=== PATIENT | female | born 1980 | race African-American/Black ===

== ENCOUNTER 2016-05-27 16:53 | Emergency (ER) | payer MEDICAID ==
--- NOTE | 2016-05-27 17:26 | ER Document Report ---
ED Medical Screen (RME) - General Stated Complaint: HEAD PAIN/NAUSEA Time seen by provider: 17:23 Mode of Arrival: Ambulatory Information source: Patient Notes: 35-year-old female presents to ED for headache since Thursday. She went to [facility] had a fever of 100.1 states she's been having headaches on and off since then. She was told it [facility] that she had muscle spasms in the back of her neck.. Patient states she's also have the nausea vomiting chills and blurred vision denies any vomiting. I have greeted and performed a rapid initial assessment of this patient. A comprehensive ED assessment and evaluation of the patient, analysis of test results and completion of medical decision making process will be conducted by an additional ED providers. TRAVEL OUTSIDE OF THE [place] IN LAST 30 DAYS: No - Related Data Allergies/Adverse Reactions: amoxicillin Allergy (Verified 05/27/16 17:23) lactose Allergy (Verified 05/27/16 17:23) NSAIDS (Non-Steroidal Anti-Inflamma Adverse Reaction (Verified 05/27/16 17:23) Past Medical History - Past Medical History Cardiac Medical History: Denies: Hx Coronary Artery Disease, Hx Heart Attack, Hx Hypertension Pulmonary Medical History: Denies: Hx Asthma, Hx Bronchitis, Hx COPD, Hx Pneumonia Neurological Medical History: Denies: Hx Cerebrovascular Accident, Hx Seizures GI Medical History: Reports: Hx Gastroesophageal Reflux Disease, Hx Ulcer Musculoskeltal Medical History: Reports Hx Arthritis Past Surgical History: Reports: Hx Section, Hx Gynecologic Surgery - D& C. Denies: Hx Pacemaker - Immunizations Hx Diphtheria, Pertussis, Tetanus Vaccination: Yes Physical Exam - Vital signs Vitals: Temp Pulse Resp BP Pulse Ox 98.1 F 81 18 123/66 99 05/27/16 17:05 05/27/16 17:05 05/27/16 17:05 05/27/16 17:05 05/27/16 17:05 Course - Vital Signs Vital signs: Temp Pulse Resp BP Pulse Ox 98.1 F 81 18 123/66 99 05/27/16 17:05 05/27/16 17:05 05/27/16 17:05 05/27/16 17:05 05/27/16 17:05
[2016-05-27] MEDS ORDERED: ACETAMINOPHEN 325 MG TABLET PO ONE (17:28)
[2016-05-27] MEDS ORDERED: PROMETHAZINE HCL 25 MG TABLET PO ONE (17:28)
[2016-05-27] MEDS ORDERED: CEFTRIAXONE 2 GM/D5W RTU 50 ML IV ONE (18:45)
[2016-05-27] MEDS ORDERED: DIPHENHYDRAMINE HCL 50 MG/ML VIAL IV ONE (18:45)
[2016-05-27] MEDS ORDERED: NORMAL SALINE 1000 ML 1,000 ML IV PRN (18:45)
[2016-05-27] MEDS ORDERED: METOCLOPRAMIDE HCL INJ/PF 10 MG/2 ML SDV IV ONE (18:45)
[2016-05-27] MEDS ORDERED: MORPHINE SULFATE 10 MG/ML INJ IV ONE ×2 (19:07→21:56)
[2016-05-27 20:03] LABS: ABSOLUTE EOSINOPHILS # (AUTO) 0.1 10^3/uL (0.0-0.6); ABSOLUTE LYMPHOCYTES (AUTO) 1.9 10^3/uL (0.5-4.7); ABSOLUTE MONOCYTES (AUTO) 0.5 10^3/uL (0.1-1.4); ABSOLUTE NEUT (AUTO) 10.1 10^3/uL (1.7-8.2); BASOPHILS % (AUTO) 0.4 % (0-2); EOSINOPHILS % (AUTO) 0.6 % (0-6); HEMATOCRIT 37.2 % (36.0-47.0); HGB HCT DIFFERENCE -1.2; MEAN CORPUSCULAR HEMOGLOBIN 25.1 pg (27.0-33.4); MEAN CORPUSCULAR HGB CONC 32.2 g/dL (32.0-36.0); MEAN CORPUSCULAR VOLUME 78 fl (80-97); MONOCYTES % (AUTO) 3.8 % (3-13); RED BLOOD COUNT 4.78 10^6/uL (3.72-5.28); RED CELL DISTRIBUTION WIDTH 16.8 % (11.5-14.0); SEGMENTED NEUTROPHILS % (AUTO) 80.2 % (42-78); WHITE BLOOD COUNT 12.6 10^3/uL (4.0-10.5)
[2016-05-27 20:06] LABS: GLUCOSE,CSF 60 mg/dL (40-70)
[2016-05-27 20:30] LABS: APPEARANCE TUBE 1 SLIGHTLY HAZY
[2016-05-27 20:31] LABS: APPEARANCE TUBE 2 CLEAR; APPEARANCE TUBE 3 CLEAR
[2016-05-27 20:32] LABS: RBC AVERAGE 248.5; RBC DILUENT USED NONE USED; RBC DILUTION FACTOR 1; RBC SIDE 1 247; RBC SIDE 2 250; TOTAL RBC SQUARES COUNTED 25
[2016-05-27 20:32] LABS: ALANINE AMINOTRANSFERASE 21 U/L (9-52); ALBUMIN 3.9 g/dL (3.5-5.0); ALKALINE PHOSPHATASE 94 U/L (38-126); ANION GAP 9 (5-19); ASPARTATE AMINO TRANSFERASE 32 U/L (14-36); BILIRUBIN,TOTAL 0.5 mg/dL (0.2-1.3); BLOOD UREA NITROGEN 12 mg/dL (7-20); CARBON DIOXIDE 25 mmol/L (22-30); CHLORIDE 105 mmol/L (98-107); CREATININE RESULT 0.72 mg/dL (0.52-1.25); GLUCOSE 99 mg/dL (75-110); SODIUM 138.8 mmol/L (137-145); TOTAL PROTEIN 8.2 g/dL (6.3-8.2)
[2016-05-27 20:33] LABS: WHITE BLOOD CELL,CSF 4 /uL (0-5)
[2016-05-27 20:34] LABS: APPEARANCE TUBE 1 SLIGHTLY HAZY; APPEARANCE TUBE 2 CLEAR; APPEARANCE TUBE 3 CLEAR
[2016-05-27 20:35] LABS: RBC DILUENT USED NONE USED; RBC DILUTION FACTOR 1; RBC SIDE 1 107; RBC SIDE 2 117; TOTAL RBC SQUARES COUNTED 225
[2016-05-27 20:36] LABS: WHITE BLOOD CELL,CSF 1 /uL (0-5)
--- NOTE | 2016-05-27 23:13 | ER Document Report ---
ED General - General Chief Complaint: Headache >24 hrs old Stated Complaint: HEAD PAIN/NAUSEA Time seen by provider: 17:00 Mode of Arrival: Ambulatory Information source: Patient Notes: Note this is a 35-year-old female that presents to the emergency room with a severe headache. Patient states she's had fever for the past 3 days. She does report photophobia and neck stiffness. Her temperature was 101. Patient was seen in the emergency room at [facility] 3 nights ago and had a CT of her head which showed no bleeding at that time. Patient did say she had fever at that time and that they did talk to her about meningitis but a spinal tap was not done. Patient states her headache is gotten worse since that time. TRAVEL OUTSIDE OF THE [place] IN LAST 30 DAYS: No - HPI Onset: Last week Onset/Duration: Gradual Quality of pain: Sharp Severity: Moderate Pain Level: 4 Associated symptoms: Chills, Fever, Other - Headache and neck stiffness. denies : Shortness of breath Exacerbated by: Denies Relieved by: Denies Similar symptoms previously: Yes Recently seen / treated by doctor: Yes - Related Data Allergies/Adverse Reactions: amoxicillin Allergy (Verified 05/27/16 17:23) lactose Allergy (Verified 05/27/16 17:23) NSAIDS (Non-Steroidal Anti-Inflamma Adverse Reaction (Verified 05/27/16 17:23) Past Medical History - General Information source: Patient - Social History Smoking Status: Never Smoker Cigarette use (# per day): No Chew tobacco use (# tins/day): No Frequency of alcohol use: None Drug Abuse: None Lives with: Family Family History: Reviewed & Not Pertinent Patient has suicidal ideation: No Patient has homicidal ideation: No - Past Medical History Cardiac Medical History: Denies: Hx Coronary Artery Disease, Hx Heart Attack, Hx Hypertension Pulmonary Medical History: Denies: Hx Asthma, Hx Bronchitis, Hx COPD, Hx Pneumonia Neurological Medical History: Denies: Hx Cerebrovascular Accident, Hx Seizures Renal/ Medical History: Denies: Hx Peritoneal Dialysis GI Medical History: Reports: Hx Gastroesophageal Reflux Disease, Hx Ulcer Musculoskeltal Medical History: Reports Hx Arthritis Past Surgical History: Reports: Hx Section, Hx Gynecologic Surgery - D& C. Denies: Hx Pacemaker - Immunizations Hx Diphtheria, Pertussis, Tetanus Vaccination: Yes Review of Systems - Review of Systems Constitutional: Chills, Fever EENT: No symptoms reported Cardiovascular: No symptoms reported Respiratory: Cough Gastrointestinal: No symptoms reported Genitourinary: No symptoms reported Female Genitourinary: No symptoms reported Musculoskeletal: No symptoms reported Skin: No symptoms reported Hematologic/Lymphatic: No symptoms reported Neurological/Psychological: See HPI, Headaches Physical Exam - Vital signs Vitals: Temp Pulse Resp BP Pulse Ox 98.1 F 81 18 123/66 99 05/27/16 17:05 05/27/16 17:05 05/27/16 17:05 05/27/16 17:05 05/27/16 17:05 Notes: Physical exam: GENERAL: 35-year-old female, alert and oriented 3, complaining of severe headache. Photophobic. Complaining of neck stiffness. HEAD: Atraumatic, normocephalic. EYES: Pupils equal round and reactive to light, extraocular movements intact, sclera anicteric, conjunctiva are normal. ENT: TMs normal, nares patent, oropharynx clear without exudates. Moist mucous membranes. NECK: Normal range of motion, pain with range of motion. LUNGS: Breath sounds clear to auscultation bilaterally and equal. No wheezes rales or rhonchi. HEART: Regular rate and rhythm without murmurs, rubs or gallops. ABDOMEN: Soft, normoactive bowel sounds. No tenderness to palpation. No guarding, no rebound. No masses appreciated. EXTREMITIES: Normal range of motion, no pitting or edema. No clubbing or cyanosis. NEUROLOGICAL: Cranial nerves II through XII grossly intact. Normal speech, motor 5 over 5, photophobia, neck stiffness. PSYCH: Normal mood, normal affect. SKIN: Warm, Dry, normal turgor, no rashes or lesions noted. Course - Re-evaluation Re-evalutation: 05/27/16 23:41 Patient was treated with IV fluids, IV pain medicine and IV Reglan and Benadryl. She was given 2 g of IV ceftriaxone pending the spinal tap Spinal tap was performed: He was initially traumatic, but after achieving the correct space, fluid was obviously clear. By the time the last 2 was obtained, the fluid in the fourth tube was clear. CSF shows 1 white cell. On reassessment of the patient, she feels much better after the above treatment. She is tolerating the light and looks good. I think most likely she has some sort of viral pathology. She does have a lot of cough and a component of bronchitis. I will put her on an antibiotic in the remote chance that there is bacteria. CSF cultures are pending and I told the patient we call her for those are positive. However, my suspicion for meningitis now based upon the CSF is very low. Given that she looks quite good , we will discharge. 05/27/16 23:43 I discussed with her that she should probably not sleep in the same room as her 18 month old son until the fever subsides. - Vital Signs Vital signs: Temp Pulse Resp BP Pulse Ox 98.4 F 67 20 94/59 L 98 05/27/16 23:26 05/27/16 23:26 05/27/16 23:26 05/27/16 23:26 05/27/16 23:26 - Laboratory Result Diagrams: 05/27/16 19:40 05/27/16 19:40 Laboratory results interpreted by me: 05/27/16 05/27/16 19:25 19:40 WBC 12.6 H MCV 78 L MCH 25.1 L RDW 16.8 H Seg Neutrophils % 80.2 H Absolute Neutrophils 10.1 H CSF RBC 2485 H - Diagnostic Test Radiology reviewed: Image reviewed, Reports reviewed - Chest x-ray shows no infiltrates Procedures - Lumbar Puncture Lumbar puncture Time completed: 20:00 Consent obtained: Yes Lumbar puncture pre-procedure: Chloraprep applied Patient position: Sitting Needle size: 20 Anesthetic type: 1% Lidocaine mL's of anesthetic: 5 Number of attempts: 1 Complications: No Notes: 05/27/16 23:40 Note: The spinal tap was initially traumatic. Advancing the needle further, subarachnoid space was achieved with clear fluid. Tubes 1 showed traumatic tap , last tube is clear. Patient Discharge - Discharge Clinical Impression: acute viral syndrome, acute febrile illness Condition: Stable Disposition: HOME, SELF-CARE Instructions: Post Lumbar Puncture ([facility]), Oral Narcotic Medication ([facility]) Additional Instructions: Recommendations: Rest, drink plenty of fluids, take Reglan for nausea. Take Percocet for pain. Take the antibiotics prescribed. As we discussed: The spinal fluid looks noninfectious at this point which is good. Cultures were sent. Return to the emergency room for worsening pain, vomiting, not tolerating fluids or any concerns that you're getting worse. Follow-up with your primary care doctor. Prescriptions: Cefuroxime Axetil [Ceftin 500 mg Tablet] 1 tab PO BID #14 tablet Metoclopramide HCl [Reglan 10 mg Tablet] 1 - 2 tab PO ASDIR PRN #14 tablet PRN Reason: Oxycodone HCl/Acetaminophen [Percocet 5-325 mg Tablet] 1 - 2 tab PO ASDIR PRN # 15 tablet PRN Reason:
[2016-05-27 23:48] VITALS: BP 114/77
== END 2016-05-27 23:48 | disposition home or self-care (01) ==
LOC: ER 16:53
PROC: 009U3ZX Drainage of Spinal Canal, Percutaneous Approach, Diagnostic (ICD-10-PCS; principal; 2016-05-27)
DX: R50.9 Fever, unspecified (principal); B34.9 Viral infection, unspecified; R51 Headache; M43.6 Torticollis; H53.149 Visual discomfort, unspecified; R05 Cough; Z91.048 Other nonmedicinal substance allergy status; Z88.0 Allergy status to penicillin
CPT/HCPCS: 96376; 99284; 96361; 96374; 96375; 36415; 87040; 87070 ×2; 87205; 87880; 85025; 89050; 82945; 84157; 80053; 87804; 71020; 62270; J3490 ×2; J1200; J2765; J2270; J7030; J0696

== ENCOUNTER 2016-10-10 12:20 | Emergency (ER) | payer MEDICAID ==
[2016-10-10] MEDS ORDERED: GUAIFENESIN 600 MG TABLET.SA PO ONE (12:47)
[2016-10-10] MEDS ORDERED: PSEUDOEPHEDRINE HCL 30 MG TABLET PO ONE (12:47)
--- NOTE | 2016-10-10 12:49 | ER Document Report ---
ED Respiratory Problem - General Chief Complaint: Cold Symptoms Stated Complaint: FLU LIKE SYMPTOMS Time Seen by Provider: 10/10/16 12:32 Mode of Arrival: Ambulatory Information source: Patient Notes: 36-year-old female presents to ED for cough and cold symptoms. She states she has been cough and congestion runny nose body aches sore throat hot and cold flashes for 2 days. She states she got coughing so much today that she started vomiting. Took some flu medicine last night which made her coughing considerably worse and a lot of stuff started breaking up. She states she has not had any medicines this morning and she is afebrile at this time. States she had an IUD put in about a month ago. TRAVEL OUTSIDE OF THE [place] IN LAST 30 DAYS: No - HPI Patient complains to provider of: Cough Onset: Other - 2 Days Duration: Better Initiating Event: URI Quality of pain: Achy Severity: Moderate Pain Level: 3 Context: Smoker Cough: Productive Sputum amount: Small Sputum color: Green Sputum consistency: Thick Associated symptoms: Congestion, Cough, PND, Runny nose, Sinus pain/pressure, Sore Throat Similar symptoms previously: Yes Recently seen / treated by doctor: No - Related Data Allergies/Adverse Reactions: amoxicillin Allergy (Verified 05/27/16 17:23) lactose Allergy (Verified 05/27/16 17:23) NSAIDS (Non-Steroidal Anti-Inflamma Adverse Reaction (Verified 05/27/16 17:23) Past Medical History - General Information source: Patient - Social History Smoking Status: Current Every Day Smoker Cigarette use (# per day): Yes - 1 cig Chew tobacco use (# tins/day): No Smoking Education Provided: Yes - less than 1 min Frequency of alcohol use: None Drug Abuse: None Occupation: no Lives with: Family Family History: Arthritis, CAD, Hyperlipidemia, Hypertension, Malignancy, Thyroid Disfunction - Past Medical History Cardiac Medical History: Reports: None Pulmonary Medical History: Reports: None EENT Medical History: Reports: Other - mono Neurological Medical History: Reports: None Endocrine Medical History: Reports: None Renal/ Medical History: Reports: Other - fibroid cyst uterus Malignancy Medical History: Reports: None GI Medical History: Reports: Hx Gastroesophageal Reflux Disease, Hx Ulcer, Hx Colonoscopy, Hx Endoscopy Musculoskeltal Medical History: Reports Hx Arthritis Skin Medical History: Reports None Psychiatric Medical History: Reports: None Traumatic Medical History: Reports: None Infectious Medical History: Reports: None Past Surgical History: Reports: Hx Section, Hx Gynecologic Surgery - D& C, fibroid cyst removed - Immunizations Immunizations up to date: Yes Hx Diphtheria, Pertussis, Tetanus Vaccination: Yes Review of Systems - Review of Systems Constitutional: Recent illness EENT: Nose congestion, Sinus pressure, Sinus discharge, Throat pain Cardiovascular: No symptoms reported Respiratory: Cough, Sputum Gastrointestinal: Vomiting - after coughing and gagging Genitourinary: No symptoms reported Female Genitourinary: No symptoms reported Musculoskeletal: No symptoms reported Skin: No symptoms reported Hematologic/Lymphatic: No symptoms reported Neurological/Psychological: No symptoms reported Physical Exam - Vital signs Vitals: Temp Pulse Resp BP Pulse Ox 98.6 F 100 18 122/62 98 10/10/16 12:34 10/10/16 12:34 10/10/16 12:34 10/10/16 12:34 10/10/16 12:34 Interpretation: Normal - General General appearance: Appears well, Alert - HEENT Head: Normocephalic, Atraumatic Eyes: Normal Pupils: PERRL Ears: Normal External canal: Normal Tympanic membrane: Normal Sinus: Normal Nasal: Purulent discharge, Swelling Mouth/Lips: Normal Mucous membranes: Normal Pharynx: Post nasal drainage. No: Erythema, Exudate, Tonsillar hypertrophy Neck: Normal - Respiratory Respiratory status: No respiratory distress Chest status: Pain with cough Breath sounds: Normal Chest palpation: Normal - Cardiovascular Rhythm: Regular Heart sounds: Normal auscultation Murmur: No - Abdominal Inspection: Normal Distension: No distension Bowel sounds: Normal Tenderness: Nontender Organomegaly: No organomegaly - Back Back: Normal, Nontender - Extremities General upper extremity: Normal inspection, Nontender, Normal color, Normal ROM , Normal temperature General lower extremity: Normal inspection, Nontender, Normal color, Normal ROM , Normal temperature, Normal weight bearing. No: Derek's sign - Neurological Neuro grossly intact: Yes Cognition: Normal Orientation: AAOx4 Scottie Coma Scale Eye Opening: Spontaneous [place]ie Coma Scale Verbal: Oriented [place] Coma Scale Motor: Obeys Commands Scottie Coma Scale Total: 15 Speech: Normal Motor strength normal: LUE, RUE, LLE, RLE Sensory: Normal - Psychological Associated symptoms: Normal affect, Normal mood - Skin Skin Temperature: Warm Skin Moisture: Dry Skin Color: Normal Course - Re-evaluation Re-evalutation: 10/10/16 14:03 36-year-old female presents to ED for cough and cold with a negative chest x- ray. - Vital Signs Vital signs: Temp Pulse Resp BP Pulse Ox 98.6 F 100 18 122/62 98 10/10/16 12:34 10/10/16 12:34 10/10/16 12:34 10/10/16 12:34 10/10/16 12:34 - Diagnostic Test Radiology reviewed: Image reviewed, Reports reviewed Discharge - Discharge Clinical Impression: URI (upper respiratory infection) Qualifiers: URI type: unspecified URI Qualified Code(s): J06.9 - Acute upper respiratory infection, unspecified Condition: Stable Disposition: HOME, SELF-CARE Instructions: Family Physicians / Practices Additional Instructions: UPPER RESPIRATORY ILLNESS: You have a viral infection of the respiratory passages -- a "cold." This common infection causes nasal congestion, drainage, and often sore throat and cough. It is highly contagious. The disease usually lasts about 10 to 14 days. There is no "cure" for the viral infection -- it must run its course. If there is a complication, such as bacterial infection in the nose, sinuses, middle ear, or bronchial tubes, antibiotics may be required. The antibiotics won't affect the virus. Drink plenty of fluids. A humidifier may help. An expectorant medication or decongestant may make you more comfortable. Use acetaminophen or ibuprofen for fever or aches. See the doctor if fever persists over two days, if there is any significant worsening of your symptoms, or if you simply fail to improve as expected. DECONGESTANT MEDICATION: A decongestant medicine has been suggested. Often this medicine is combined in the same tablet with an antihistamine or expectorant. This type of medicine is helpful in treating a bad cold or sinus condition, as well as in treatment of the nasal congestion of hay fever. It is not of much benefit for lung infections. Decongestant medicines are related to stimulants. They can cause an increase in blood pressure and heart rate. Persons with heart disease and high blood pressure should not take decongestants without discussing this with the physician. If you develop palpitations, chest pain, headache, or tremors, stop the medicine and consult your physician. COUGH-SUPPRESSANT & EXPECTORANT MEDICATION: You are to use a cough medication as needed for relief of symptoms. This medicine is a combination of an expectorant (to make the mucous thinner and more easily "coughed up") and a cough suppressant (to reduce the frequency of coughing). The cough-suppressant medicine is related to narcotics. You may experience mild nausea and sleepiness. Some patients who are very sensitive to narcotics may have stomach pain from this medicine. Taking the medicine with food reduces these side effects. Do not drive or work with machinery until you know how this medicine affects you. The expectorant should have no side effects. Iodine-containing expectorants (such as organidin) should not be taken by persons with active thyroid disease unless approved by your doctor. Call the doctor if you develop shortness of breath, hives, rash, itching, lightheadedness, or severe nausea and vomiting. USE OF ACETAMINOPHEN (Tylenol): Acetaminophen may be taken for pain relief or fever control. It's much safer than aspirin, offering a wider range of "safe" dosages. It is safe during . Some brand names are Tylenol, Panadol, Datril, Anacin 3, Tempra, and Liquiprin. Acetaminophen can be repeated every four hours. The following are maximum recommended dosages: >89 pounds or adults 650 mg to 900 mg Acetaminophen can be repeated every four hours. Maximum dose not to exceed 4000 mg a day. SMOKING: If you smoke, you should stop smoking. The tar and chemicals in cigarette smoke are harmful. Smoking has been shown to cause: emphysema chronic bronchitis lung cancer mouth and throat cancer stomach and pancreas cancer premature aging defects In addition, smoking increases ear and lung infections in children of smokers. FOLLOW-UP CARE: If you have been referred to a physician for follow-up care, call the physician s office for an appointment as you were instructed or within the next two days. If you experience worsening or a significant change in your symptoms, notify the physician immediately or return to the Emergency Department at any time for re-evaluation. Forms: Smoking Cessation Education
--- NOTE | 2016-10-10 13:14 | RADIOLOGY REPORT (SQ) ---
EXAM DESCRIPTION: CHEST PA/LAT COMPLETED DATE/TIME: 10/10/2016 12:55 pm REASON FOR STUDY: cough congestion COMPARISON: 05/27/2016 EXAM PARAMETERS: NUMBER OF VIEWS: two views TECHNIQUE: Digital Frontal and Lateral radiographic views of the chest acquired. RADIATION DOSE: NA LIMITATIONS: none FINDINGS: LUNGS AND PLEURA: No opacities, masses or pneumothorax. No pleural effusion. MEDIASTINUM AND HILAR STRUCTURES: No masses or contour abnormalities. HEART AND VASCULAR STRUCTURES: Heart normal size. No evidence for failure. BONES: No acute findings. HARDWARE: None in the chest. OTHER: No other significant finding. IMPRESSION: NO SIGNIFICANT RADIOGRAPHIC FINDING IN THE CHEST. TECHNICAL DOCUMENTATION: JOB ID: [id number] [employer]- All Rights Reserved
[2016-10-10 14:50] VITALS: BP 113/73
== END 2016-10-10 14:12 | disposition home or self-care (01) ==
LOC: ER 12:20
DX: J06.9 Acute upper respiratory infection, unspecified (principal); R05 Cough; J02.9 Acute pharyngitis, unspecified; R09.82 Postnasal drip; R09.81 Nasal congestion; J34.89 Other specified disorders of nose and nasal sinuses; R07.89 Other chest pain; F17.210 Nicotine dependence, cigarettes, uncomplicated; Z71.6 Tobacco abuse counseling; Z97.5 Presence of (intrauterine) contraceptive device; Z88.0 Allergy status to penicillin
CPT/HCPCS: 99283; 71020; J3490

== ENCOUNTER 2017-01-12 18:55 | Emergency (ER) | payer MEDICAID ==
[2017-01-12] MEDS ORDERED: ONDANSETRON 4 MG TAB.RAPDIS PO ONE (20:18)
[2017-01-12 20:37] LABS: ABSOLUTE BASOPHILS # (AUTO) 0.1 10^3/uL (0.0-0.2); ABSOLUTE EOSINOPHILS # (AUTO) 0.1 10^3/uL (0.0-0.6); ABSOLUTE LYMPHOCYTES (AUTO) 2.3 10^3/uL (0.5-4.7); ABSOLUTE MONOCYTES (AUTO) 0.5 10^3/uL (0.1-1.4); ABSOLUTE NEUT (AUTO) 7.6 10^3/uL (1.7-8.2); BASOPHILS % (AUTO) 0.9 % (0-2); EOSINOPHILS % (AUTO) 0.6 % (0-6); HEMATOCRIT 36.6 % (36.0-47.0); HEMOGLOBIN 12.5 g/dL (12.0-15.5); HGB HCT DIFFERENCE 0.9; LYMPHOCYTES % (AUTO) 21.5 % (13-45); MEAN CORPUSCULAR HEMOGLOBIN 27.2 pg (27.0-33.4); MEAN CORPUSCULAR HGB CONC 34.1 g/dL (32.0-36.0); MEAN CORPUSCULAR VOLUME 80 fl (80-97); MONOCYTES % (AUTO) 4.9 % (3-13); RED BLOOD COUNT 4.59 10^6/uL (3.72-5.28); RED CELL DISTRIBUTION WIDTH 17.8 % (11.5-14.0); SEGMENTED NEUTROPHILS % (AUTO) 72.1 % (42-78); WHITE BLOOD COUNT 10.5 10^3/uL (4.0-10.5)
[2017-01-12 21:00] LABS: ALANINE AMINOTRANSFERASE 19 U/L (9-52); ALBUMIN 4.3 g/dL (3.5-5.0); ALKALINE PHOSPHATASE 77 U/L (38-126); ANION GAP 12 (5-19); ASPARTATE AMINO TRANSFERASE 17 U/L (14-36); BILIRUBIN,DIRECT 0.3 mg/dL (0.0-0.4); BILIRUBIN,TOTAL 0.4 mg/dL (0.2-1.3); BLOOD UREA NITROGEN 11 mg/dL (7-20); CALCIUM 9.6 mg/dL (8.4-10.2); CARBON DIOXIDE 27 mmol/L (22-30); CHLORIDE 102 mmol/L (98-107); CREATININE RESULT 0.71 mg/dL (0.52-1.25); GLUCOSE 103 mg/dL (75-110); LIPASE 95.9 U/L (23-300); POTASSIUM 3.8 mmol/L (3.6-5.0); SODIUM 140.8 mmol/L (137-145); TOTAL PROTEIN 7.4 g/dL (6.3-8.2)
[2017-01-12] MEDS ORDERED: DIPHENHYDRAMINE HCL 50 MG/ML VIAL IV ONE (22:24)
[2017-01-12] MEDS ORDERED: NORMAL SALINE 1000 ML 1,000 ML IV ONE ×2 (22:24→23:37)
[2017-01-12] MEDS ORDERED: KETOROLAC TROMETHAMINE INJ/PF 30 MG/1 ML SDV IV ONE (22:24)
--- NOTE | 2017-01-12 22:33 | ER Document Report ---
ED GI/ - General Chief Complaint: Abdominal Cramping Stated Complaint: ABDOMINAL PAIN, BACK PAIN Time Seen by Provider: 01/12/17 19:46 Mode of Arrival: Ambulatory Information source: Patient, Parent, [facility] Records Notes: This 36-year-old female patient comes emergency room complaining of lower abdominal cramps and low back pain. She states it began on 01/08/2017. She was seen at [facility] ER where she had an ultrasound done on 01/09/2017. She states that showed a 2 cm cyst on 1 of her ovaries, she does not know which one. She was prescribed Ultram on that visit. She saw her primary care provider today who told her there was some blood in her urine and they did a pelvic exam. She reports severe pain on the exam but complained that they did not even tell her what the cultures showed. Advised her that cultures take 24-48 hours. She further reports that she has had bad menstrual cramps ever since she was a teenager but that she does not have any vaginal bleeding at this time. Her last menstrual period was in November. She denies vaginal discharge, states she has not been sexually active recently. At this time she states "there is extreme pain in my lower abdomen and low back ". She is requesting Percocet. TRAVEL OUTSIDE OF THE [place] IN LAST 30 DAYS: No - Related Data Allergies/Adverse Reactions: amoxicillin Allergy (Verified 01/12/17 19:01) lactose Allergy (Verified 01/12/17 19:01) NSAIDS (Non-Steroidal Anti-Inflamma Adverse Reaction (Verified 01/12/17 19:01) Past Medical History - General Information source: Patient, Parent, [facility] Records - Social History Smoking Status: Current Some Day Smoker Cigarette use (# per day): Yes Chew tobacco use (# tins/day): No Smoking Education Provided: No Frequency of alcohol use: Rare Drug Abuse: None Occupation: Unemployed Lives with: Parents Family History: Arthritis, CAD, Hyperlipidemia, Hypertension, Malignancy, Thyroid Disfunction - Past Medical History Cardiac Medical History: Reports: None Pulmonary Medical History: Reports: None EENT Medical History: Reports: None Neurological Medical History: Reports: None Endocrine Medical History: Reports: None Renal/ Medical History: Reports: Hx Ovarian Cysts, Other - She states someone told her she might have endometriosis GI Medical History: Reports: Hx Gastroesophageal Reflux Disease, Hx Ulcer, Hx Colonoscopy, Hx Endoscopy Musculoskeltal Medical History: Reports Hx Arthritis Psychiatric Medical History: Reports: None Past Surgical History: Reports: Hx Section, Hx Dilation and Curettage - 2011, Hx Gynecologic Surgery - Myomectomies last year in [place] - Immunizations Immunizations up to date: Yes Hx Diphtheria, Pertussis, Tetanus Vaccination: Yes Review of Systems - Review of Systems Constitutional: No symptoms reported EENT: No symptoms reported Cardiovascular: No symptoms reported Respiratory: No symptoms reported Gastrointestinal: See HPI Genitourinary: See HPI Female Genitourinary: See HPI Musculoskeletal: See HPI, Back pain Skin: No symptoms reported Hematologic/Lymphatic: No symptoms reported Neurological/Psychological: No symptoms reported Physical Exam - Vital signs Vitals: Temp Pulse Resp BP Pulse Ox 97.8 F 92 18 127/70 H 97 01/12/17 19:02 01/12/17 19:02 01/12/17 19:02 01/12/17 19:02 01/12/17 19:02 Interpretation: Normal - General General appearance: Appears well, Alert In distress: None - HEENT Head: Normocephalic, Atraumatic Eyes: Normal Pupils: PERRL - Respiratory Respiratory status: No respiratory distress - Cardiovascular Rhythm: Regular - Abdominal Inspection: Obese Bowel sounds: Normal Tenderness: Tender - Patient complains of severe tenderness across her lower abdomen pelvis region on palpation. - Back Back: Tender - Very tender to palpate the paravertebral lumbar muscles - Extremities General upper extremity: Normal inspection General lower extremity: Normal inspection - Neurological Neuro grossly intact: Yes - Psychological Associated symptoms: Normal affect, Normal mood - Skin Skin Temperature: Warm Skin Moisture: Dry Skin Color: Normal Course - Re-evaluation Re-evalutation: 01/13/17 00:06 When discussing the findings with the patient, she states that she had her period at the end of December and is started on 01/08/2017 but only lasted a couple of days. Her periods normally last 4-5 days. Then her mother stated she did not have her "show" with the period, meaning she did not bleed. The patient admitted she did not bleed but felt that the cramping was caused by her menstrual period. The patient's urine is a little concentrated but no sign of infection. The CBC and Chem-12 are unremarkable. The test is negative. The KUB shows a lot of stool in the colon. Advise the patient that her pelvic pain could be PRE CODER related, could be due to constipation. It would be a good idea to take something like mag citrate and MiraLAX to clean out her colon to eliminate constipation as a possibility for her pains. And that she has had a recent ultrasound, a pelvic exam earlier today by her primary care provider and continues to have discomfort in the pelvic region, advised her she should follow -up with an IN SERVICE COORDINATOR specialist for further evaluation. I also advised her that narcotic pain medication would likely make the constipation problem worse and may actually worsen the cause of her pain. - Vital Signs Vital signs: Temp Pulse Resp BP Pulse Ox 97.8 F 92 18 127/70 H 97 01/12/17 19:02 01/12/17 19:02 01/12/17 19:02 01/12/17 19:02 01/12/17 19:02 - Laboratory Result Diagrams: 01/12/17 20:15 01/12/17 20:15 Laboratory results interpreted by me: 01/12/17 01/12/17 20:15 20:15 RDW 17.8 H Urine Blood SMALL H Discharge - Discharge Clinical Impression: Pelvic pain Abdominal pain Qualifiers: Abdominal location: lower abdomen, unspecified Qualified Code(s): R10.30 - Lower abdominal pain, unspecified Low back pain Qualifiers: Chronicity: unspecified Back pain laterality: bilateral Sciatica presence: without sciatica Qualified Code(s): M54.5 - Low back pain Condition: Stable Disposition: HOME, SELF-CARE Additional Instructions: Your ongoing pelvic pain may be due to PRE CODER pathology, but constipation is also possibility. Be sure you drink plenty of fluids. Take a dose of citrate of magnesia and then take MiraLAX on a daily basis. Follow-up with your primary care provider or a local IN SERVICE COORDINATOR doctor for further evaluation of your lower abdomen and pelvic discomfort.
--- NOTE | 2017-01-12 23:32 | RADIOLOGY REPORT (SQ) ---
EXAM DESCRIPTION: KUB/ABDOMEN (SINGLE VIEW) COMPLETED DATE/TIME: 01/12/2017 11:19 pm REASON FOR STUDY: pelvic pain, LBP COMPARISON: None. NUMBER OF VIEWS: One view. TECHNIQUE: Supine radiographic image of the abdomen acquired. LIMITATIONS: None. FINDINGS: BOWEL GAS PATTERN: Normal bowel gas pattern. No dilated loops. CALCIFICATIONS: No suspicious calcifications. SOFT TISSUES: No gross mass or suggestion of organomegaly. HARDWARE: IUD present. BONES: No acute fracture. No worrisome bone lesions. OTHER: No other significant finding. IMPRESSION: NO RADIOGRAPHIC EVIDENCE FOR ACUTE ABDOMINAL DISEASE. TECHNICAL DOCUMENTATION: JOB ID: [id number] [employer]- All Rights Reserved
[2017-01-12 23:57] LABS: APPEARANCE,URINE CLEAR; BILIRUBIN,URINE NEGATIVE (NEGATIVE); GLUCOSE, URINE NEGATIVE (NEGATIVE); KETONES,URINE NEGATIVE (NEGATIVE); LEUKOCYTE ESTERASE,URINE NEGATIVE (NEGATIVE); NITRITE,URINE NEGATIVE (NEGATIVE); PROTEIN,URINE NEGATIVE (NEGATIVE); UROBILINOGEN,URINE NEGATIVE mg/dL (<2.0)
[2017-01-13 00:17] VITALS: BP 131/70
== END 2017-01-13 00:17 | disposition home or self-care (01) ==
LOC: ER 18:55
DX: R10.2 Pelvic and perineal pain (principal); R10.30 Lower abdominal pain, unspecified; M54.5 Low back pain; E66.9 Obesity, unspecified; F17.210 Nicotine dependence, cigarettes, uncomplicated; Z88.0 Allergy status to penicillin
CPT/HCPCS: 99284; 96361; 96374; 96375; 36415; 84702; 83690; 85025; 80053; 81001; 74000; J1200; S0119; J1885; J7030

== ENCOUNTER 2017-06-13 17:35 | Emergency (ER) | payer MEDICAID ==
--- NOTE | 2017-06-13 18:52 | ER Document Report ---
HPI - HPI Patient complains to provider of: Left knee pain Pain Level: 5 Context: Patient is a 36-year-old female presents emergency department complaining of acute on chronic left knee pain. Patient states that she has had issues with her left knee since she was 15 but more recently since she had her son 2 years ago. She states that she follows with [facility] or so and has received injections in her knee previously. She states that she was told she has cartilage damage on the lateral aspect. She states that she took 2 BC powders prior to arrival but otherwise takes [id number] NSAIDs as needed. She denies any chronic pain medications. She states that since she was diagnosed with disease in her knee she has been attempting to lose weight, she is a non-smoker, denies any alcohol. Otherwise denies any recent trauma, fall - REPRODUCTIVE LMP: 05/07/17 Reproductive: DENIES: : - MUSCULOSKELETAL Musculoskeletal: REPORTS: Extremity pain - left knee Past Medical History - Social History Smoking Status: Current Some Day Smoker Frequency of alcohol use: None Drug Abuse: None Family History: Arthritis, CAD, Hyperlipidemia, Hypertension, Malignancy, Thyroid Disfunction Patient has suicidal ideation: No Patient has homicidal ideation: No - Past Medical History Cardiac Medical History: Denies: Hx Coronary Artery Disease, Hx Heart Attack, Hx Hypertension Pulmonary Medical History: Denies: Hx Asthma, Hx Bronchitis, Hx COPD, Hx Pneumonia Neurological Medical History: Denies: Hx Cerebrovascular Accident, Hx Seizures Renal/ Medical History: Reports: Hx Ovarian Cysts. Denies: Hx Peritoneal Dialysis GI Medical History: Reports: Hx Gastroesophageal Reflux Disease, Hx Ulcer, Hx Colonoscopy, Hx Endoscopy Musculoskeltal Medical History: Reports Hx Arthritis Past Surgical History: Reports: Hx Section, Hx Dilation and Curettage - 2011, Hx Gynecologic Surgery - Myomectomies last year in [place]. Denies: Hx Pacemaker - Immunizations Immunizations up to date: Yes Hx Diphtheria, Pertussis, Tetanus Vaccination: Yes Vertical Provider Document - CONSTITUTIONAL Agree With Documented VS: Yes Notes: PHYSICAL EXAM GENERAL: Alert, interacts well. EXTREMITIES: Left knee with full range of motion but guarding secondary to pain. No tenderness to palpation, no palpable fluctuance of the knee. Pain reproducible to axial loading and Apley test in the lateral left knee. Patient with full active and passive range of motion.. No edema, dorsalis pedis pulses 2 /4 bilaterally. No cyanosis. NEUROLOGICAL: Alert and oriented x4. Normal speech. PSYCH: Normal affect, normal mood. SKIN: Warm, dry, normal turgor. No rashes or lesions noted. - INFECTION CONTROL TRAVEL OUTSIDE OF THE [place] IN LAST 30 DAYS: No - RESPIRATORY O2 Sat by Pulse Oximetry: 98 Course - Re-evaluation Re-evalutation: 06/13/17 19:40 Patient is a 36-year-old female whose presentation is consistent with internal knee injury likely related to a torn meniscus. No evidence of a septic joint, gout flare, dislocation, or fracture on exam and imaging. Vitals wnl. At this time, I do not see an indication for labs or further imaging. Will discharge with conservative measures, return precautions, and follow-up recommendations. - Vital Signs Vital signs: Temp Pulse Resp BP Pulse Ox 99.0 F 102 H 20 109/63 98 06/13/17 17:43 06/13/17 17:43 06/13/17 17:43 06/13/17 17:43 06/13/17 17:43 - Diagnostic Test Radiology reviewed: Image reviewed, Reports reviewed Discharge - Discharge Clinical Impression: Left knee pain Qualifiers: Chronicity: chronic Qualified Code(s): M25.562 - Pain in left knee Condition: Good Disposition: HOME, SELF-CARE Instructions: Use of Crutches ([facility]), Suspected Internal Knee Injury ([facility]) Additional Instructions: Please follow-up with your orthopedist for pain management and evaluation of your chronic knee pain. Please take the medications as directed. Prescriptions: Methylprednisolone [Medrol Dosepack (4 mg/Tab) 21 Tab/Dosepak] 4 mg PO ASDIR PRN #21 tab.ds.pk PRN Reason: Naproxen 500 mg PO DAILY #20 tablet Referrals: DOLLY WHEELER MD [ACTIVE STAFF] - Follow up in 1 week
[2017-06-13] MEDS ORDERED: NAPROXEN 250 MG TABLET PO ONE (19:13)
--- NOTE | 2017-06-13 19:21 | RADIOLOGY REPORT (SQ) ---
EXAM DESCRIPTION: KNEE LEFT 4 VIEW COMPLETED DATE/TIME: 06/13/2017 7:01 pm REASON FOR STUDY: chronic pain COMPARISON: None. NUMBER OF VIEWS: Five views. TECHNIQUE: AP, lateral, and both oblique radiographic images acquired of the left knee. LIMITATIONS: None. FINDINGS: MINERALIZATION: Normal. BONES: No acute fracture or dislocation. No worrisome bone lesions. JOINT: No effusion. SOFT TISSUES: No soft tissue swelling. No radio-opaque foreign body. OTHER: No other significant finding. IMPRESSION: NEGATIVE STUDY OF THE LEFT KNEE. NO RADIOGRAPHIC EVIDENCE OF ACUTE INJURY. TECHNICAL DOCUMENTATION: JOB ID: [id number] [employer]- All Rights Reserved Reading location - IP/workstation name: [email or web address]
[2017-06-13] MEDS ORDERED: KETOROLAC TROMETHAMINE INJ/PF 30 MG/1 ML SDV IM ONE (19:39)
[2017-06-13 20:28] VITALS: BP 111/70
== END 2017-06-13 20:27 | disposition home or self-care (01) ==
LOC: ER 17:35
DX: M25.562 Pain in left knee (principal); G89.29 Other chronic pain; F17.200 Nicotine dependence, unspecified, uncomplicated
CPT/HCPCS: 99283; 96372; 73562; J1885